=== PATIENT | female | born 1970 | race Caucasian/White ===

== ENCOUNTER 2023-08-25 18:40 | Outpatient (CLI) | payer OTHER | END 2023-08-25 23:59 | disposition EMS.NT | LOC: EMS 18:40 | DX: R55 Syncope and collapse (principal); R51.9 Headache, unspecified; W20.8XXA Other cause of strike by thrown, projected or falling object, initial encounter; Y92.009 Unspecified place in unspecified non-institutional (private) residence as the place of occurrence of the external cause ==

== ENCOUNTER 2023-08-25 19:50 | Emergency (ER) | payer OTHER ==
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
--- NOTE | 2023-08-25 21:42 | CT Report ---
PROCEDURE: Head WO INDICATIONS: head injury w/ LOC TECHNIQUE: Noncontrast 4.5 mm thick angled axial sections acquired from the foramen magnum to the vertex. For r adiation dose reduction, the following was used: automated exposure control, adjustment of mA and/or kV according to patient size. COMPARISON: None. FINDINGS: Image quality: Excellent. CSF spaces: Basal cisterns are patent. No extra-axial fluid collections. Ventricles are normal in size and shape. Brain: No midline shift. No intracranial masses or hemorrhage. [place]-white matter interface is norm al. Skull and face: Calvarium and visualized facial bones are intact, without suspicious lesions. Sinuses: Visualized sinuses and mastoids are clear. IMPRESSION: No acute intracranial pathology. Reviewed by: Casper Henry MD on 08/25/2023 9:41 PM PDT Approved by: Casper Henry MD on 08/25/2023 9:41 PM PDT Station ID: [id number]
--- NOTE | 2023-08-25 21:45 | CT Report ---
PROCEDURE: Maxillofacial WO INDICATIONS: head injury (nose/midline lower forehead) TECHNIQUE: Noncontrast 1.5 mm thick axial images acquired from the mandible through the frontal sinuses, with co elly and sagittal reformatting. For radiation dose reduction, the following was used: automated ex posure control, adjustment of mA and/or kV according to patient size. COMPARISON: None. FINDINGS: Image quality: Excellent. Bones and teeth: Orbital whitaker are intact. Sinus whitaker show no fracture or deformity. Nasal bones and septum are intact. Visualized portions of the mandible demonstrate no fractures or subluxation. Zygomatic arches are intact. Pterygoid plates are intact. Visualized portions of the skull base an d auditory canals are intact. Sinuses: Paranasal sinuses are aerated, without fluid levels, mucosal thickening, or mucoceles. [place] toid air cells are aerated. Soft tissues: Mild soft tissue edema is seen in the nose. No enlarged lymph nodes. No soft tissue l acerations or debris. Vascular: Visualized vascular structures appear normal in the absence of contrast. Bony vascular fo ramina and canals are intact. IMPRESSION: No acute facial bone fracture. Reviewed by: Casper Henry MD on 08/25/2023 9:44 PM PDT Approved by: Casper Henry MD on 08/25/2023 9:44 PM PDT Station ID: [id number]
[2023-08-25 22:37] VITALS: BP 123/81; O2SAT 98
== END 2023-08-25 22:25 | disposition home or self-care (01) ==
LOC: ED 19:50
DX: S06.9X1A Unspecified intracranial injury with loss of consciousness of 30 minutes or less, initial encounter (principal); W21.09XA Struck by other hit or thrown ball, initial encounter; I10 Essential (primary) hypertension
CPT/HCPCS: 99283; 99284